=== PATIENT | female | born 1990 | race Caucasian/White ===

== ENCOUNTER 2017-03-24 21:38 | Emergency (ER) | payer MEDICAID ==
[2017-03-24] MEDS ORDERED: diphenhydrAMINE 50 MG/ML SDV IM ONE (22:06)
[2017-03-24] MEDS ORDERED: methylPREDNISolone Sodium Succinate 125 MG/2 ML SDV IM ONE (22:09)
--- NOTE | 2017-03-24 22:16 | EDM.PDOC ---
ED HPI GENERAL MEDICAL PROBLEM - General Chief Complaint: Skin Complaint Stated Complaint: skin rash Time Seen by Provider: 03/24/17 21:42 History Limitations: Reports: No Limitations - History of Present Illness INITIAL COMMENTS - FREE TEXT/NARRATIVE: Patient states that she was sleeping over at a friend's house and she woke up the next day and she has been itching since then. She has been itching on her left flank and CVA area. It is now gone over to her chest. She has not tried any antihistamines. Her exam is consistent with scabies. I could see the burrowing. I did give her a shot of steroid as well as Benadryl. I did educate her about scabies and also prescribed the medication necessary to rid her of it. A pee in close contact will most likely have to be treated as well and she may have to have a second treatment here in 1-2 weeks. The patient understood. She is to look for signs of secondary infection. Onset: Other (Yesterday) Duration: Getting Worse Severity: Moderate Improves with: Reports: None Worsens with: Reports: None Associated Symptoms: Reports: Rash - Related Data Allergies Allergy/AdvReac Type Severity Reaction Status Date / Time No Known Allergies Allergy Verified 03/24/17 21:48 Past Medical History Genitourinary History: Reports: Other (See Below) Other Genitourinary History: renal reflux Psychiatric History: Reports: Anxiety, Depression Social & Family History - Tobacco Use Smoking Status *Q: Current Every Day Smoker Years of Tobacco use: 8 Packs/Tins Daily: 0.5 - Recreational Drug Use Recreational Drug Use: No ED ROS GENERAL - Review of Systems Review Of Systems: ROS reveals no pertinent complaints other than HPI. ED EXAM, SKIN/RASH Exam: See Below Exam Limited By: No Limitations General Appearance: Alert, Moderate Distress Respiratory/Chest: No Respiratory Distress, Lungs Clear, Normal Breath Sounds, No Accessory Muscle Use, Chest Non-Tender Cardiovascular: Normal Peripheral Pulses, Regular Rate, Rhythm, No Edema, No Gallop, No JVD, No Murmur, No Rub Skin: Rash (She does have burrowing. ) Location, Skin: Other (Left flank. ) Associated features: Warmth (slight). No: Crusting Course - Vital Signs Last Recorded V/S: Last Vital Signs Temp 36.4 C 03/24/17 21:44 Pulse 72 03/24/17 21:44 Resp 16 03/24/17 21:44 BP 110/65 03/24/17 21:44 Pulse Ox 100 03/24/17 21:44 - Orders/Labs/Meds Meds: Medications Discontinued Medications Generic Name Dose Route Start Last Admin Trade Name Sultana PRN Reason Stop Dose Admin Diphenhydramine HCl 50 mg 03/24/17 22:06 03/24/17 22:26 Benadryl IM 03/24/17 22:07 50 mg ONETIME ONE Administration Diphenhydramine HCl Confirm 03/24/17 22:17 Benadryl Administered 03/24/17 22:18 Dose 50 mg .ROUTE .STK-MED ONE Methylprednisolone Sodium Succinate 125 mg 03/24/17 22:09 Solu-Medrol IM 03/24/17 22:10 ONETIME ONE Methylprednisolone Sodium Succinate Confirm 03/24/17 22:17 03/24/17 22:26 Solu-Medrol Administered 03/24/17 22:18 125 mg Dose Administration 125 mg .ROUTE .STK-MED ONE Departure - Departure Time of Disposition: 22:17 Disposition: Home, Self-Care 01 Condition: Good Clinical Impression: Infestation by Sarcoptes scabiei - Discharge Information Instructions: Scabies, Adult Referrals: Coby Gale PATIENT CARE TECHNICIAN [Primary Care Provider] - Forms: ED Department Discharge Additional Instructions: Fill the Rx. You did receive benadryl and a steroid- solumedrol in the ED. Antihistamines may be used. Claritin during the day and benadryl. Patients should massage permethrin cream thoroughly into the skin from the neck to the soles of the feet, including areas under the fingernails and toenails. Permethrin should be removed by washing (shower or bath) after 8 to 14 hours. Treatment is often performed overnight. A second application one to two weeks later may be necessary to eliminate mites and is typically performed [6,7]. Close personal contacts are typically treated
[2017-03-24] MEDS ORDERED: diphenhydrAMINE 50 MG/ML SDV ONE (22:17)
[2017-03-24] MEDS ORDERED: methylPREDNISolone Sodium Succinate 125 MG/2 ML SDV ONE (22:17)
== END 2017-03-24 22:28 | disposition home or self-care (01) ==
LOC: VM.ED 21:38
DX: B86 Scabies (principal); F17.210 Nicotine dependence, cigarettes, uncomplicated
CPT/HCPCS: 96372; 99283; J1200; J2930

== ENCOUNTER 2017-03-31 18:57 | Emergency (ER) | payer MEDICAID ==
--- NOTE | 2017-03-31 19:47 | EDM.PDOC ---
ED HPI GENERAL MEDICAL PROBLEM - General Chief Complaint: Skin Complaint Stated Complaint: POSSIBLE RASH Time Seen by Provider: 03/31/17 19:02 Source of Information: Reports: Patient, Old Records, RN, RN Notes Reviewed History Limitations: Reports: No Limitations - History of Present Illness INITIAL COMMENTS - FREE TEXT/NARRATIVE: Patient presents the emergency room at [facility] complaining of a skin rash. The patient states she was in this emergency room about one week ago and was diagnosed with scabies and was treated with permethrin, which she applied daily for 1 week. The patient states her symptoms have not resolved. The patient states that the rash is very pruritic. The rash is located on the posterior upper back, volar surface of the right wrist, dorsum of left hand. The patient does not have any rash around the waistline or in the webs of fingers/toes. There has been no discharge from the rash. The rash has not been bolus formation. The patient was recently treated with Bactrim for a urinary tract infection. The patient started on the Bactrim March 22, 2017. The patient was on a one-week course therefore she should have finished her Bactrim on March 29. The patient states the rash did not start until after she started taking the Bactrim. Onset: Gradual - Related Data Allergies Allergy/AdvReac Type Severity Reaction Status Date / Time No Known Allergies Allergy Verified 03/24/17 21:48 Home Meds: Home Meds Acyclovir [Zovirax] 1 cap PO ASDIRECTED PRN 03/31/17 [History] FLUoxetine HCl [Fluoxetine HCl] 1 cap PO DAILY 03/31/17 [History] Permethrin [Permethrin] 1 dose TOP ASDIRECTED 03/31/17 [History] predniSONE [Deltasone] 1 tab PO BID 5 Days #10 tablet 03/31/17 [Rx] Past Medical History Genitourinary History: Reports: Other (See Below) Other Genitourinary History: renal reflux Psychiatric History: Reports: Anxiety, Depression Social & Family History - Tobacco Use Smoking Status *Q: Current Every Day Smoker Years of Tobacco use: 8 Packs/Tins Daily: 0.5 - Recreational Drug Use Recreational Drug Use: No ED ROS GENERAL - Review of Systems Review Of Systems: See Below Constitutional: Reports: No Symptoms. Denies: Fever, Chills, Weakness Respiratory: Denies: Shortness of Breath, Cough Cardiovascular: Denies: Chest Pain, Palpitations Skin: Reports: Pruritis, Rash Neurological: Reports: No Symptoms ED EXAM, SKIN/RASH Exam: See Below Exam Limited By: No Limitations General Appearance: Alert, No Apparent Distress Respiratory/Chest: No Respiratory Distress, Lungs Clear, Normal Breath Sounds Cardiovascular: Normal Peripheral Pulses, Regular Rate, Rhythm Peripheral Pulses: 2+: Radial (L), Radial (R) Neurological: Alert, Oriented Skin: Warm, Dry, Intact, Normal Color, Rash Location, Skin: Back, Upper Extremity, Right Characteristics: Macular, Erythematous Associated features: No: Tenderness, Scaling, Crusting, Weeping Departure - Departure Time of Disposition: 19:48 Disposition: Home, Self-Care 01 Condition: Good Clinical Impression: Rash, drug - Discharge Information Prescriptions: predniSONE [Deltasone] 1 tab PO BID 5 Days #10 tablet Instructions: Rash, Drug Rash Referrals: Coby Gale PUBLIC WORKS LABORER [Primary Care Provider] - Additional Instructions: 1. Stay well hydrated and rest 2. Take medications for the full coarse, even is rash is better 3. Avoid scratching as much as possible 4. Do not put lotions, creams, gels on the rash 5. If not better in the next 3-4 days, follow up with your Primary 6. Call with any questions/concerns - Problem List Review Problem List Initiated/Reviewed/Updated: Yes
[2017-03-31] MEDS ORDERED: methylPREDNISolone Sodium Succinate 40 MG/1 ML SDV IM ONE (19:48)
== END 2017-03-31 20:02 | disposition home or self-care (01) ==
LOC: VM.ED 18:57 → SUPCPDRO 18:57 → VM.ED 20:02
DX: L27.0 Generalized skin eruption due to drugs and medicaments taken internally (principal); F41.9 Anxiety disorder, unspecified; F32.9 Major depressive disorder, single episode, unspecified; F17.210 Nicotine dependence, cigarettes, uncomplicated
CPT/HCPCS: 96372; 99283; J2920

== ENCOUNTER 2017-04-27 14:05 | Emergency (ER) | payer MEDICAID ==
[2017-04-27] MEDS ORDERED: Take Home: Acetaminophen/HYDROcodone 325-10 MG, 5 Tab Pack PO ONE (14:21)
--- NOTE | 2017-04-27 14:29 | EDM.PDOC ---
ED HPI GENERAL MEDICAL PROBLEM - General Chief Complaint: General Stated Complaint: tooth pain Time Seen by Provider: 04/27/17 14:11 Source of Information: Reports: Patient - History of Present Illness INITIAL COMMENTS - FREE TEXT/NARRATIVE: Patient comes in today with complaints of frontal teeth pain. She states she has pain to the upper and the lower front of her teeth where her gums have retracted below her nerve line. She has no complaints of fever, infection, or swelling. She has been attempting to use ogbl-rfw-[id number] products for pain relief including ibuprofen, Motrin, and Anbesol which she says are not working. She has an appointment on Saturday with her dentist to attempt to fix her teeth. Onset: Gradual Duration: Getting Worse Quality: Reports: Ache Severity: Moderate Improves with: Reports: None Worsens with: Reports: Eating Associated Symptoms: Reports: No Other Symptoms - Related Data Allergies Allergy/AdvReac Type Severity Reaction Status Date / Time No Known Allergies Allergy Verified 03/31/17 23:55 Home Meds: Home Meds Acyclovir [Zovirax] 1 cap PO ASDIRECTED PRN 03/31/17 [History] FLUoxetine HCl [Fluoxetine HCl] 1 cap PO DAILY 03/31/17 [History] Permethrin [Permethrin] 1 dose TOP ASDIRECTED 03/31/17 [History] predniSONE [Deltasone] 1 tab PO BID 5 Days #10 tablet 03/31/17 [Rx] Past Medical History Genitourinary History: Reports: Other (See Below) Other Genitourinary History: renal reflux Psychiatric History: Reports: Anxiety, Depression Social & Family History - Tobacco Use Smoking Status *Q: Current Every Day Smoker Years of Tobacco use: 8 Packs/Tins Daily: 0.5 - Recreational Drug Use Recreational Drug Use: No ED ROS GENERAL - Review of Systems Review Of Systems: See Below Constitutional: Reports: No Symptoms HEENT: Reports: Dental Pain Respiratory: Reports: No Symptoms Cardiovascular: Reports: No Symptoms Endocrine: Reports: No Symptoms GI/Abdominal: Reports: No Symptoms : Reports: No Symptoms Musculoskeletal: Reports: No Symptoms Skin: Reports: No Symptoms Neurological: Reports: No Symptoms Psychiatric: Reports: No Symptoms Hematologic/Lymphatic: Reports: No Symptoms Immunologic: Reports: No Symptoms ED EXAM, GENERAL - Physical Exam Exam: See Below Exam Limited By: No Limitations General Appearance: Alert, WD/WN, Moderate Distress Eye Exam: Bilateral Eye: PERRL Nose: Normal Inspection, Normal Mucosa, No Blood Throat/Mouth: Other (gum line visibly lower and causing nerve pain to the front top and bottom 2 teeth). No: Normal Teeth Head: Atraumatic, Normocephalic Neck: Normal Inspection, Supple, Non-Tender, Full Range of Motion Respiratory/Chest: No Respiratory Distress, Lungs Clear, Normal Breath Sounds, No Accessory Muscle Use, Chest Non-Tender Cardiovascular: Normal Peripheral Pulses, Regular Rate, Rhythm, No Edema, No Gallop, No JVD, No Murmur, No Rub Extremities: Normal Inspection, Normal Range of Motion, Non-Tender, Normal Capillary Refill, No Pedal Edema Neurological: Alert, Oriented, CN II-XII Intact, Normal Cognition, Normal Gait, Normal Reflexes, No Motor/Sensory Deficits Psychiatric: Normal Affect, Normal Mood Skin Exam: Warm, Dry, Intact, Normal Color, No Rash Lymphatic: No Adenopathy Course - Orders/Labs/Meds Meds: Medications Discontinued Medications Generic Name Dose Route Start Last Admin Trade Name Sultana PRN Reason Stop Dose Admin Hydrocodone Bitart/Acetaminophen 2 packet 04/27/17 14:21 Take Home: Acetaminophen/Hydrocodone 325-10mg PO 04/27/17 14:22 ONETIME ONE Departure - Departure Time of Disposition: 14:24 Disposition: Home, Self-Care 01 Condition: Good Clinical Impression: Pain in tooth - Discharge Information Instructions: Dental Caries, Pediatric Forms: ED Department Discharge Additional Instructions: Make sure to keep your dental appointment on Saturday and use the pain medications sparingly. Take the hydrocodone by mouth every 4-6 hours. You can try 1/2 the tablet to see if it works. If it isn't strong enough you can take the other 1/2 of tablet. You can additionally take aleve, motrin, or ibuprofen. Take one of these, not all three. Continue to use the over the counter remedies that you have. Follow up with your dentist as needed Please call with any questions or concerns - Problem List & Annotations (1) Pain in tooth SNOMED Code(s): 99987937 Code(s): K08.89 - OTHER SPECIFIED DISORDERS OF TEETH AND SUPPORTING STRUCTURES Status: Acute Priority: Low - Problem List Review Problem List Initiated/Reviewed/Updated: Yes - Assessment/Plan Assessment:: tooth caries Plan: Make sure to keep your dental appointment on Saturday and use the pain medications sparingly. Take the hydrocodone by mouth every 4-6 hours. You can try 1/2 the tablet to see if it works. If it isn't strong enough you can take the other 1/2 of tablet. You can additionally take aleve, motrin, or ibuprofen. Take one of these, not all three. Continue to use the over the counter remedies that you have. Follow up with your dentist as needed Please call with any questions or concerns
== END 2017-04-27 14:36 | disposition home or self-care (01) ==
LOC: VM.ED 14:05
DX: K08.89 Other specified disorders of teeth and supporting structures (principal); F32.9 Major depressive disorder, single episode, unspecified; F41.9 Anxiety disorder, unspecified; F17.210 Nicotine dependence, cigarettes, uncomplicated; Z79.899 Other long term (current) drug therapy
CPT/HCPCS: 99282; A9270-GY

== ENCOUNTER 2018-04-26 14:08 | Emergency (ER) | payer MEDICAID ==
[2018-04-26] MEDS ORDERED: Ondansetron 4 MG/2 ML SDV IVPUSH ONE (14:22)
[2018-04-26] MEDS ORDERED: Sodium Chloride 0.9% 10 ML Syringe FLUSH PRN (14:22)
[2018-04-26] MEDS ORDERED: Ketorolac 30 MG/ML SDV IVPUSH ONE (14:22)
[2018-04-26] MEDS ORDERED: Sodium Chloride 0.9% 1,000 ML IV ONE (14:23)
--- NOTE | 2018-04-26 14:24 | EDM.PDOC ---
ED HPI GENERAL MEDICAL PROBLEM - General Chief Complaint: Headache Stated Complaint: HEAD ACHE NAUSIA Time Seen by Provider: 04/26/18 14:18 Source of Information: Reports: Patient, Old Records, RN, RN Notes Reviewed History Limitations: Reports: No Limitations - History of Present Illness INITIAL COMMENTS - FREE TEXT/NARRATIVE: Patient presents emergency room at [facility] complaining of a global headache. The patient states that her headache started a couple of months ago. The patient thought it was a typical migraine/headache and therefore she was just using vjjh-ipl-icupraj products. The patient states that the headache has not gone away therefore she presents for evaluation. The patient has been using gmns-frz-ynxcfrf analgesics without any relief. The patient states she has severe photophobia. The patient also feels very nauseated. The patient has not had any vomiting. No head injury or trauma. The patient denies any neck or back pain. Otherwise no other concerns. Duration: Chronic Headache Pain Score (Numeric/FACES): 9 - Related Data Allergies Allergy/AdvReac Type Severity Reaction Status Date / Time sulfamethoxazole Allergy Hives Verified 04/26/18 14:22 [From Bactrim] trimethoprim [From Bactrim] Allergy Hives Verified 04/26/18 14:22 Home Meds: Home Meds . [No Known Home Meds] 04/26/18 [History] Past Medical History Genitourinary History: Reports: Other (See Below) Other Genitourinary History: renal reflux Psychiatric History: Reports: Anxiety, Depression ED ROS GENERAL - Review of Systems Review Of Systems: See Below Constitutional: Denies: Fever, Chills Respiratory: Denies: Shortness of Breath, Cough Cardiovascular: Denies: Chest Pain, Palpitations GI/Abdominal: Reports: Nausea. Denies: Abdominal Pain, Vomiting Skin: Reports: No Symptoms Neurological: Reports: Headache - Physical Exam Exam: See Below Exam Limited By: No Limitations General Appearance: Alert, No Apparent Distress Eye Exam: Bilateral Eye: EOMI, Normal Inspection, PERRL Head Exam: Atraumatic, Normocephalic Neck: Supple Respiratory/Chest: No Respiratory Distress, Lungs Clear, Normal Breath Sounds Cardiovascular: Normal Peripheral Pulses, Regular Rate, Rhythm GI/Abdominal: Normal Bowel Sounds, Soft, Non-Tender Neuro Exam (Abbreviated): Alert, Oriented, Normal Cognition, No Motor/Sensory Deficits Course - Vital Signs Last Recorded V/S: Last Vital Signs Temp 37.0 C 04/26/18 14:18 Pulse 62 04/26/18 14:18 Resp 16 04/26/18 14:18 BP 114/71 04/26/18 14:18 Pulse Ox 97 04/26/18 14:18 - Orders/Labs/Meds Orders: Active Orders 24 hr Category Date Time Status CBC WITH AUTO DIFF [HEME] Stat Lab 04/26/18 14:55 Results SEDIMENTATION RATE AUTO [HEME] Stat Lab 04/26/18 14:55 Results Sodium Chloride 0.9% [Saline Flush] Med 04/26/18 14:22 Active 10 ml FLUSH ASDIRECTED PRN Peripheral IV Insertion Adult [OM.PC] Routine Oth 04/26/18 14:22 Ordered Medication Orders Sodium Chloride (Saline Flush) 10 ml FLUSH ASDIRECTED PRN PRN Reason: Keep Vein Open Labs: Laboratory Tests 04/26/18 04/26/18 Range/Units 14:55 14:55 WBC 7.9 (4.0-10.0) x10^3/uL RBC 4.43 (4.00-5.50) x10^6/uL Hgb 13.1 (12.0-16.0) g/dL Hct 39.5 (33.0-47.0) % MCV 89.2 (78.0-93.0) fL MCH 29.6 (26.0-32.0) pg MCHC 33.2 (32.0-36.0) g/dL RDW Coeff of Bakari 12.4 (10.0-15.0) % Plt Count 260 (130-400) x10^3/uL Neut % (Auto) 59.8 (50.0-80.0) % Lymph % (Auto) 33.0 (25.0-50.0) % Tyler % (Auto) 5.5 (2.0-11.0) % Eos % (Auto) 1.4 (0.0-4.0) % Baso % (Auto) 0.3 (0.2-1.2) % Sodium 141 (136-145) mmol/L Potassium 3.9 (3.5-5.1) mmol/L Chloride 105 (98-107) mmol/L Carbon Dioxide 26 (21-32) mmol/L Anion Gap 13.9 (10-20) mmol/L BUN 15 (7-18) mg/dL Creatinine 1.1 H (0.55-1.02) mg/dL Est Cr Clr Drug Dosing 72.55 mL/min Estimated GFR (MDRD) > 60 Glucose 89 (74-106) mg/dL Calcium 8.9 (8.5-10.1) mg/dL Magnesium 1.9 (1.8-2.4) mg/dL C-Reactive Protein < 0.2 (<=0.9) mg/dL Meds: Medications Generic Name Dose Route Start Last Admin Trade Name Freq PRN Reason Stop Dose Admin Sodium Chloride 10 ml 04/26/18 14:22 Saline Flush FLUSH ASDIRECTED PRN Keep Vein Open Discontinued Medications Generic Name Dose Route Start Last Admin Trade Name Freq PRN Reason Stop Dose Admin Chlorpromazine HCl 50 mg/ 102 mls @ 100 mls/hr 04/26/18 14:22 04/26/18 14:41 Sodium Chloride IV 04/26/18 15:23 100 mls/hr ONETIME ONE Administration Sodium Chloride 1,000 mls @ 999 mls/hr 04/26/18 14:23 04/26/18 14:41 Normal Saline IV 04/26/18 15:23 999 mls/hr ONETIME ONE Administration Ketorolac Tromethamine 30 mg 04/26/18 14:22 04/26/18 14:41 Toradol IVPUSH 04/26/18 14:23 30 mg ONETIME ONE Administration Ondansetron HCl 4 mg 04/26/18 14:22 04/26/18 14:41 Zofran IVPUSH 04/26/18 14:23 4 mg ONETIME ONE Administration Departure - Departure Time of Disposition: 15:37 Disposition: Home, Self-Care 01 Condition: Good Clinical Impression: Headache Qualifiers: Headache type: tension-type Headache chronicity pattern: acute headache Intractability: not intractable Qualified Code(s): G44.209 - Tension-type headache, unspecified, not intractable - Discharge Information *PRESCRIPTION DRUG MONITORING PROGRAM REVIEWED*: Not Applicable *COPY OF PRESCRIPTION DRUG MONITORING REPORT IN PATIENT NURIA: Not Applicable Instructions: General Headache Without Cause Referrals: Coby Gale NP [Primary Care Provider] - Forms: ED Department Discharge Additional Instructions: 1. Stay well hydrated and rest 2. Use OTC Tylenol/Advil as needed 3. Make appt to see Cobydiamond Gale this Saturday for a recheck - Problem List Review Problem List Initiated/Reviewed/Updated: Yes - My Orders Last 24 Hours: My Active Orders 04/26/18 14:22 Sodium Chloride 0.9% [Saline Flush] 10 ml FLUSH ASDIRECTED PRN Peripheral IV Insertion Adult [OM.PC] Routine 04/26/18 14:55 CBC WITH AUTO DIFF [HEME] Stat SEDIMENTATION RATE AUTO [HEME] Stat - Assessment/Plan Last 24 Hours: My Active Orders 04/26/18 14:22 Sodium Chloride 0.9% [Saline Flush] 10 ml FLUSH ASDIRECTED PRN Peripheral IV Insertion Adult [OM.PC] Routine 04/26/18 14:55 CBC WITH AUTO DIFF [HEME] Stat SEDIMENTATION RATE AUTO [HEME] Stat Assessment:: Headache Cephalgia Plan: Labs are normal. Patient responded well to IV medications. Will recommend patient see her PCP on Saturday for a follow up. She may need additional workup. Advised to stay well hydrated and rest.
[2018-04-26 15:13] LABS: CHLORIDE,CL 105 mmol/L (98-107); SODIUM,NA 141 mmol/L (136-145)
[2018-04-26 15:14] LABS: ANION GAP 13.9 mmol/L (10-20)
== END 2018-04-26 16:00 | disposition home or self-care (01) ==
LOC: VM.ED 14:08
DX: G44.209 Tension-type headache, unspecified, not intractable (principal); F41.9 Anxiety disorder, unspecified; F32.9 Major depressive disorder, single episode, unspecified; Z88.2 Allergy status to sulfonamides; Z88.1 Allergy status to other antibiotic agents
CPT/HCPCS: 36415; 80048; 83735; 85025; 85652; 86140; 96365; 96375; 99284; J1885; J2405; J3230; J7030; J7050